=== PATIENT | male | born 1980 | race Caucasian/White ===

== ENCOUNTER → 2017-11-29 | Outpatient (CLI) | payer OTHER ==
--- NOTE | 2017-11-29 14:06 | DIAGNOSTIC IMAGING REPORT ---
LUMBAR SPINE W/O CONTRAST CLINICAL HISTORY: 37 years-old Male with M54.16 Lumbar radiculopathyEMG 08/2107 L4 T L5 radiculopathy l. Acute mid back pain without known injury. The pain radiates into the left hip and legs. Patient is unresponsive to physical therapy. COMPARISON: None. TECHNIQUE: Multiplanar, multi sequence MRI of the lumbar spine was performed without intravenous contrast. FINDINGS: Partially imaged 3.7 x 0.2 cm linear T2 hyperintense focus of the central distal thoracic spinal cord is nicely seen on image 8 of series 3 suggesting a small syrinx. Conus medullaris terminates at L1. Aorta appears normal in caliber. No adenopathy. No acute paraspinal abnormality identified. No significant discogenic degenerative changes identified. No focal bone marrow edema, acute fracture or subluxation. T12-L1: No central canal or neural foraminal stenosis. L1-L2: No central canal or neural foraminal stenosis. L2-L3: No central canal or neural foraminal stenosis. L3-L4: No central canal or neural foraminal stenosis. L4-L5: No central canal or neural foraminal stenosis. L5-S1: No central canal or neural foraminal stenosis. IMPRESSION: 1. No significant discogenic degenerative changes, central canal or foraminal narrowing. 2. Partially imaged linear T2 hyperintense lesion of the central distal thoracic spinal cord suggests small syrinx. The above report was generated using voice recognition software. It may contain grammatical, syntax or spelling errors. Electronically signed by: Min Menendez M.D. 11/29/2017 2:05 PM Dictated Date/Time: 11/29/2017 1:58 PM
== END | disposition home or self-care (01) ==
LOC: C.MRI 13:16
PROVIDERS: ATTEND Family Medicine
DX: M54.18 Radiculopathy, sacral and sacrococcygeal region (principal); M54.16 Radiculopathy, lumbar region; G95.9 Disease of spinal cord, unspecified

== ENCOUNTER → 2017-12-06 | Outpatient (CLI) | payer OTHER ==
[2017-12-06 12:58] LABS: ALBUMIN 4.3 gm/dl (3.4-5.0); BLOOD UREA NITROGEN 14 mg/dl (7-18); CALCIUM 9.2 mg/dl (8.5-10.1); CARBON DIOXIDE 28 mmol/L (21-32); CREATININE 1.02 mg/dl (0.60-1.40); GLUCOSE 88 mg/dl (70-99); PHOSPHORUS 3.3 mg/dl (2.5-4.9); POTASSIUM 4.1 mmol/L (3.5-5.1); SODIUM 138 mmol/L (136-145)
== END | disposition home or self-care (01) ==
LOC: C.LABMFLN 10:13
PROVIDERS: ATTEND Physician Assistant
DX: G95.0 Syringomyelia and syringobulbia (principal)

== ENCOUNTER → 2017-12-11 | Outpatient (CLI) | payer OTHER ==
[~2017-12-11] MED LIST: GADAVIST IV PRN
--- NOTE | 2017-12-11 14:44 | DIAGNOSTIC IMAGING REPORT ---
THORACIC SPINE COMBO HISTORY: Syrinx SYRINX OF SPINAL CORD TECHNIQUE: Multiplanar multisequence MRI of the thoracic spine was performed both before and after the intravenous administration of contrast. COMPARISON: MRI lumbar spine 11/29/2017 FINDINGS: Alignment and curvature are intact. No fracture or subluxation. No significant central canal or neural foraminal narrowing. Small central syrinx of the thoracic cord at T7-T8 having a maximum length of 2.5 cm. Maximum transaxial dimension is 1.7 mm. A potential small syrinx is seen at the T11-T12 level extending over a maximum length of 3.3 cm. Maximum diameter is 1.8 mm Signal characteristics of the remainder the thoracic column appear unremarkable. There is no evidence for abnormal postcontrast enhancement. There is no compromise of the spinal canal or neural foramina. Signal characteristics of the vertebral bodies as well as intervertebral disc appear unremarkable. IMPRESSION: 1. Mild distention of the central canal of the thoracic cord versus small syrinx at T7-T8 and T11-T12. 2. Maximum diameter of the T7-T8 level central canal is 1.7 mm , with the T11-T12 distention 1.8 mm. 3. No evidence for abnormal postcontrast enhancement. 4. No evidence for disc herniation or spinal stenosis. The above report was generated using voice recognition software. It may contain grammatical, syntax or spelling errors. Electronically signed by: Reji Hubbard M.D. 12/11/2017 2:42 PM Dictated Date/Time: 12/11/2017 2:36 PM
== END | disposition home or self-care (01) ==
LOC: C.MRI 13:28
PROVIDERS: ATTEND Family Medicine
DX: G95.0 Syringomyelia and syringobulbia (principal)